=== PATIENT | male | born 1940 | race Two or more races ===

== ENCOUNTER 2018-05-12 22:36 | Emergency (ER) | payer MEDICARE ==
[~2018-05-12] VITALS: Ht 177.8 cm; Wt 89.4 kg
--- NOTE | 2018-05-12 23:07 | NUR ---
Dr. Pink in w/ pt. for MSE
--- NOTE | 2018-05-12 23:07 | NUR ---
Pt. ambulated into ED w/ c/o 11/13 PLATT pain d/t fall, A/Ox4, has poor ability to recall exactly when the fall occurred "from yesterday to 5 days ago", denies SOB/F/C/N/V/CP,
--- NOTE | 2018-05-12 23:22 | NUR ---
pyrotechnics press tender at bedside
[2018-05-12 23:25] LABS: BASOPHILS % (AUTO) 0.6 % (0.0-2.0); EOSINOPHILS # (AUTO) 0.2 K/uL (0.0-0.7); EOSINOPHILS % (AUTO) 2.6 % (0.0-7.0); LYMPHOCYTES # (AUTO) 1.9 K/uL (20.0-40.0); LYMPHOCYTES % (AUTO) 26.3 % (20.5-51.5); MEAN CORPUSCULAR HEMOGLOBIN 32.3 uug (23.8-33.4); MEAN CORPUSCULAR HGB CONC 34 g/dL (32.5-36.3); MEAN CORPUSCULAR VOLUME 94.5 fL (73.0-96.2); MONOCYTES # (AUTO) 0.9 K/uL (2.0-10.0); MONOCYTES % (AUTO) 12.1 % (0.0-11.0); NEUTROPHILS # (AUTO) 4.2 K/uL (1.8-8.9); NEUTROPHILS % (AUTO) 58.4 % (38.5-71.5); PLATELET COUNT (AUTO) 186 K/uL (152-348); RED BLOOD CELL COUNT(AUTO) 4.34 MIL/uL (4.06-5.63); WHITE BLOOD COUNT (AUTO) 7.2 K/uL (3.6-10.2)
[2018-05-12 23:31] LABS: CARBON DIOXIDE 26 mmol/L (21-32); CHLORIDE 104 mmol/L (98-107); CREATININE 0.9 mg/dL (0.6-1.3); GLUCOSE 106 mg/dL (74-106); POTASSIUM 3.7 mmol/L (3.5-5.1); UREA NITROGEN, BLOOD 18 mg/dL (7-18)
--- NOTE | 2018-05-13 00:15 | NUR ---
Pt. resting in bed, no acute distress,
--- NOTE | 2018-05-13 01:11 | NUR ---
Patient discharged to home in stable conditon. Written and verbal after care instructions given. Patient verbalizes understanding of instructions. Pt. d/c per MD orders, left w/ female project landscape architect, all belongings taken, no acute distress,
[2018-05-13 01:12] VITALS: BP 155/93
== END 2018-05-13 01:13 | disposition home or self-care (01) ==
LOC: ER 22:38
DX: S06.0X0A Concussion without loss of consciousness, initial encounter (principal); R55 Syncope and collapse; W10.0XXA Fall (on)(from) escalator, initial encounter; Y93.89 Activity, other specified; Y92.89 Other specified places as the place of occurrence of the external cause; Y99.8 Other external cause status
CPT/HCPCS: 36415; 70030-TC; 70450; 71045; 85025; 93005; A4663